=== PATIENT | male | born 1960 ===

== ENCOUNTER 2024-09-14 10:38 | Inpatient (IN) ==
[2024-09-14] MEDS ORDERED: IOPAMIDOL 100 ML BOTTLE IV ONE (10:39)
[2024-09-14] MEDS: ONDANSETRON 4 MG/2 ML VIAL IV ONE (11:18)
[2024-09-14] MEDS: ASPIRIN 81 MG TAB.CHEW CHEWED ONE (11:18)
[2024-09-14] MEDS: morphine 4 MG/ML VIAL IV ONE (11:18)
[2024-09-14 11:33] LABS: Basophils # (Auto) 0.02 K/mcL (0.00-0.30); Basophils % (Auto) 0.1 % (0.0-2.0); Eosinophils # (Auto) 0.02 K/mcL (0.00-0.70); Eosinophils % (Auto) 0.1 % (0.0-7.0); Hematocrit 45.5 % (40.1-51.0); Hemoglobin 16.1 g/dL (13.7-17.5); Lymphocytes # (Auto) 2.07 K/mcL (1.50-4.80); Lymphocytes % (Auto) 15.2 % (15.5-49.0); Mean Cell Volume 85.4 fL (80.0-100.0); Mean Corpuscular HGB Conc 35.4 g/dL (31.0-36.0); Mean Platelet Volume 9.1 fL (8.8-12.5); Monocytes # (Auto) 0.91 K/mcL (0.10-0.90); Monocytes % (Auto) 6.7 % (1.0-12.0); Neutrophils % (Auto) 77.8 % (38.0-78.0); Platelet Count 188 K/mcL (140-440); RBC 5.33 M/mcL (4.63-6.08); Red Cell Distribution Width 12.4 % (11.5-14.5); WBC 13.6 K/mcL (4.5-11.0)
[2024-09-14 11:53] LABS: INR 1.1 (0.9-1.1); Prothrombin Time 14.3 sec (11.9-14.5)
[2024-09-14 11:58] LABS: ALT/SGPT 26 U/L (<40); AST/SGOT 25 U/L (<40); Albumin 4.6 gm/dL (3.2-5.2); Albumin/Globulin Ratio 1.8 (1.0-2.3); Alkaline Phosphatase 72 U/L (39-117); Bilirubin,Total 1.5 mg/dL (0.1-1.0); Blood Urea Nitrogen 15 mg/dL (8-23); Calcium 9.2 mg/dL (8.6-10.4); Carbon Dioxide 24 mmol/L (22-30); Chloride 100 mmol/L (96-108); Globulin 2.5 gm/dL (2.2-3.7); Glomerular Filtration Rate 78; Glucose 143 mg/dL (70-105); Potassium 3.9 mmol/L (3.3-5.1); Sodium 138 mmol/L (133-145)
[2024-09-14] MEDS: PIPERACILLIN SODIUM/TAZOBACTAM 3.375 GM in DEXTROSE 5% IN WATER 50 ML IV ONE (13:35)
[2024-09-14] MEDS: DEXTROSE 5%-NS 1,000 ML IV SCH (17:37)
[2024-09-14] MEDS: PIPERACILLIN SODIUM/TAZOBACTAM 4.5 GM in DEXTROSE 5% IN WATER 100 ML IV SCH (17:56)
[2024-09-14] MEDS: HYDROmorphone 1 MG/ML SYRINGE IV PRN (21:31)
[2024-09-15 06:40] LABS: Hematocrit 43.1 % (40.1-51.0); Hemoglobin 15.1 g/dL (13.7-17.5); Mean Cell Volume 87.1 fL (80.0-100.0); Mean Platelet Volume 9.1 fL (8.8-12.5); Platelet Count 150 K/mcL (140-440); RBC 4.95 M/mcL (4.63-6.08); Red Cell Distribution Width 12.6 % (11.5-14.5); WBC 12.1 K/mcL (4.5-11.0)
[2024-09-15 06:45] LABS: ALT/SGPT 19 U/L (<40); AST/SGOT 23 U/L (<40); Albumin 4.1 gm/dL (3.2-5.2); Albumin/Globulin Ratio 1.6 (1.0-2.3); Alkaline Phosphatase 65 U/L (39-117); Bilirubin,Total 1.6 mg/dL (0.1-1.0); Blood Urea Nitrogen 13 mg/dL (8-23); Calcium 8.7 mg/dL (8.6-10.4); Carbon Dioxide 24 mmol/L (22-30); Chloride 100 mmol/L (96-108); Globulin 2.5 gm/dL (2.2-3.7); Glomerular Filtration Rate 78; Glucose 175 mg/dL (70-105); Potassium 3.9 mmol/L (3.3-5.1); Sodium 136 mmol/L (133-145)
[2024-09-15] MEDS: LOSARTAN 50 MG TABLET PO SCH (08:23)
[2024-09-15] MEDS: ACETAMINOPHEN 1,000 MG/100 ML BAG IV PRN (09:13)
[2024-09-15 16:09] LABS: Basophils # (Auto) 0.02 K/mcL (0.00-0.30); Basophils % (Auto) 0.2 % (0.0-2.0); Eosinophils # (Auto) 0.17 K/mcL (0.00-0.70); Eosinophils % (Auto) 1.5 % (0.0-7.0); Hematocrit 44.7 % (40.1-51.0); Hemoglobin 15.7 g/dL (13.7-17.5); Lymphocytes # (Auto) 2.09 K/mcL (1.50-4.80); Lymphocytes % (Auto) 18.1 % (15.5-49.0); Mean Cell Volume 86.1 fL (80.0-100.0); Mean Corpuscular HGB Conc 35.1 g/dL (31.0-36.0); Mean Platelet Volume 8.7 fL (8.8-12.5); Monocytes # (Auto) 0.89 K/mcL (0.10-0.90); Monocytes % (Auto) 7.7 % (1.0-12.0); Neutrophils % (Auto) 72.4 % (38.0-78.0); Platelet Count 158 K/mcL (140-440); RBC 5.19 M/mcL (4.63-6.08); Red Cell Distribution Width 12.5 % (11.5-14.5); WBC 11.5 K/mcL (4.5-11.0)
[2024-09-15 16:29] LABS: Blood Urea Nitrogen 11 mg/dL (8-23); Calcium 9.1 mg/dL (8.6-10.4); Carbon Dioxide 28 mmol/L (22-30); Chloride 102 mmol/L (96-108); Glomerular Filtration Rate 69; Glucose 143 mg/dL (70-105); Potassium 4.3 mmol/L (3.3-5.1); Sodium 139 mmol/L (133-145)
[2024-09-16 06:07] LABS: Hematocrit 42.3 % (40.1-51.0); Hemoglobin 14.9 g/dL (13.7-17.5); Mean Cell Volume 86.5 fL (80.0-100.0); Mean Corpuscular HGB Conc 35.2 g/dL (31.0-36.0); Mean Platelet Volume 9.1 fL (8.8-12.5); Platelet Count 144 K/mcL (140-440); RBC 4.89 M/mcL (4.63-6.08); Red Cell Distribution Width 12.5 % (11.5-14.5); WBC 9.7 K/mcL (4.5-11.0)
[2024-09-16 06:26] LABS: ALT/SGPT 78 U/L (<40); AST/SGOT 63 U/L (<40); Albumin 3.9 gm/dL (3.2-5.2); Albumin/Globulin Ratio 1.6 (1.0-2.3); Alkaline Phosphatase 101 U/L (39-117); Bilirubin,Total 1.3 mg/dL (0.1-1.0); Blood Urea Nitrogen 10 mg/dL (8-23); Calcium 8.8 mg/dL (8.6-10.4); Carbon Dioxide 26 mmol/L (22-30); Chloride 103 mmol/L (96-108); Globulin 2.5 gm/dL (2.2-3.7); Glomerular Filtration Rate 69; Glucose 146 mg/dL (70-105); Potassium 3.7 mmol/L (3.3-5.1); Sodium 138 mmol/L (133-145)
[2024-09-16] MEDS ORDERED: MIDAZOLAM 2 MG/2 ML VIAL ONE (07:47)
[2024-09-16] MEDS ORDERED: PROPOFOL 200 MG/20 ML VIAL IV ONE (07:47)
[2024-09-16] MEDS ORDERED: KETAMINE 50 MG/ML ML ONE (07:48)
[2024-09-16] MEDS ORDERED: METOCLOPRAMIDE 10 MG/2 ML VIAL ONE (07:54)
[2024-09-16] MEDS ORDERED: PHENYLEPHRINE 10 MG/ML VIAL ONE (07:54)
[2024-09-16] MEDS ORDERED: ePHEDrine 50 MG/5 ML SYRINGE (ANEST) IV ONE (07:54)
[2024-09-16] MEDS ORDERED: 0.9 % SODIUM CHLORIDE 100 ML IV ONE (07:58)
[2024-09-16] MEDS ORDERED: SUGAMMADEX SODIUM 200 MG/2 ML VIAL IV ONE (08:09)
[2024-09-16] MEDS ORDERED: KETOROLAC 30 MG/ML VIAL ONE (08:13)
[2024-09-16] MEDS ORDERED: FAMOTIDINE/PF 20 MG/2 ML VIAL IV ONE (08:13)
[2024-09-16] MEDS ORDERED: TRANEXAMIC ACID 1,000 MG/10 ML VIAL ONE (08:13)
[2024-09-16] MEDS ORDERED: ONDANSETRON 4 MG/2 ML VIAL ONE (08:13)
[2024-09-16] MEDS ORDERED: GLYCOPYRROLATE 0.2 MG/ML VIAL IV ONE (08:13)
[2024-09-16] MEDS ORDERED: DEXAMETHASONE 10 MG/ML VIAL ONE (08:13)
[2024-09-16] MEDS ORDERED: ROCURONIUM 10 MG/ML ML IV ONE (08:13)
[2024-09-16] MEDS: BUPIVACAINE W/EPI 0.25% 50 ML VIAL IJ ONE (10:08)
[2024-09-16] MEDS ORDERED: HYDROmorphone 0.5 MG/0.5 ML SYRINGE ONE ×2 (10:35→12:06)
[2024-09-16] MEDS ORDERED: LABETALOL HCL 20 MG/4 ML VIAL IV ONE (10:37)
[2024-09-16] MEDS ORDERED: fentaNYL 100 MCG/2 ML VIAL IV PRN (12:49)
[2024-09-16] MEDS ORDERED: NALOXONE HCL 0.4 MG/ML VIAL IV PRN (12:49)
[2024-09-16] MEDS ORDERED: HYDROmorphone 0.5 MG/0.5 ML SYRINGE IV PRN (12:49)
[2024-09-16] MEDS ORDERED: ONDANSETRON 4 MG/2 ML VIAL IV PRN (12:49)
[2024-09-16] MEDS ORDERED: IPRATROPIUM/ALBUTEROL 3 ML AMPUL.NEB NEB PRN (12:49)
[2024-09-16] MEDS: ACETAMINOPHEN 650 MG/65 ML BAG IV SCH (16:04)
[2024-09-16] MEDS: LACTATED RINGERS 1,000 ML IV SCH (20:54)
[2024-09-17 06:48] LABS: Hemoglobin 14.5 g/dL (13.7-17.5); Mean Cell Volume 86.3 fL (80.0-100.0); Mean Corpuscular HGB Conc 35.4 g/dL (31.0-36.0); Mean Platelet Volume 9.8 fL (8.8-12.5); Platelet Count 152 K/mcL (140-440); RBC 4.75 M/mcL (4.63-6.08); Red Cell Distribution Width 12.5 % (11.5-14.5); WBC 13.4 K/mcL (4.5-11.0)
[2024-09-17 06:49] LABS: ALT/SGPT 84 U/L (<40); AST/SGOT 57 U/L (<40); Albumin 4.1 gm/dL (3.2-5.2); Albumin/Globulin Ratio 1.7 (1.0-2.3); Alkaline Phosphatase 81 U/L (39-117); Bilirubin,Total 0.6 mg/dL (0.1-1.0); Blood Urea Nitrogen 12 mg/dL (8-23); Calcium 8.8 mg/dL (8.6-10.4); Carbon Dioxide 25 mmol/L (22-30); Chloride 102 mmol/L (96-108); Globulin 2.4 gm/dL (2.2-3.7); Glomerular Filtration Rate 69; Glucose 173 mg/dL (70-105); Potassium 3.9 mmol/L (3.3-5.1); Sodium 140 mmol/L (133-145)
[2024-09-17] MEDS ORDERED: ZOLPIDEM 5 MG TABLET PO PRN (09:30)
[2024-09-17] MEDS: DEXTROSE 5%-NS 1,000 ML IV SCH ×2 (17:01→18:02)
[2024-09-17] MEDS: ONDANSETRON 4 MG/2 ML VIAL IV PRN (21:16)
[2024-09-18] MEDS: DEXTROSE 5%-LR 1,000 ML IV SCH (02:08)
[2024-09-18 06:12] LABS: Hematocrit 41.8 % (40.1-51.0); Hemoglobin 14.5 g/dL (13.7-17.5); Mean Cell Volume 87.6 fL (80.0-100.0); Mean Corpuscular HGB Conc 34.7 g/dL (31.0-36.0); Platelet Count 171 K/mcL (140-440); RBC 4.77 M/mcL (4.63-6.08); Red Cell Distribution Width 12.8 % (11.5-14.5); WBC 11.3 K/mcL (4.5-11.0)
[2024-09-18 06:36] LABS: ALT/SGPT 59 U/L (<40); AST/SGOT 31 U/L (<40); Albumin/Globulin Ratio 1.7 (1.0-2.3); Alkaline Phosphatase 69 U/L (39-117); Bilirubin,Total 0.8 mg/dL (0.1-1.0); Blood Urea Nitrogen 12 mg/dL (8-23); Calcium 8.7 mg/dL (8.6-10.4); Carbon Dioxide 26 mmol/L (22-30); Chloride 104 mmol/L (96-108); Globulin 2.3 gm/dL (2.2-3.7); Glomerular Filtration Rate 69; Glucose 128 mg/dL (70-105); Potassium 3.6 mmol/L (3.3-5.1); Sodium 140 mmol/L (133-145)
[2024-09-18] MEDS: HEPARIN 5,000 UNIT/ML VIAL SQ SCH (08:35)
[2024-09-18] MEDS: LOSARTAN 50 MG TABLET PO ONE (17:35)
[2024-09-18] MEDS: TAMSULOSIN 0.4 MG CAPSULE PO SCH (20:53)
[2024-09-19] MEDS: ENALAPRILAT 1.25 MG/ML VIAL IV ONE (00:44)
[2024-09-19] MEDS: LOSARTAN 50 MG TABLET PO SCH (08:18)
[2024-09-19] MEDS: amLODIPine 10 MG TABLET PO SCH (17:42)
[2024-09-20 05:59] LABS: Basophils # (Auto) 0.02 K/mcL (0.00-0.30); Basophils % (Auto) 0.3 % (0.0-2.0); Eosinophils # (Auto) 0.25 K/mcL (0.00-0.70); Eosinophils % (Auto) 3.2 % (0.0-7.0); Hematocrit 41.7 % (40.1-51.0); Hemoglobin 14.6 g/dL (13.7-17.5); Lymphocytes # (Auto) 1.43 K/mcL (1.50-4.80); Lymphocytes % (Auto) 18.5 % (15.5-49.0); Mean Cell Volume 85.5 fL (80.0-100.0); Mean Platelet Volume 8.7 fL (8.8-12.5); Monocytes # (Auto) 0.48 K/mcL (0.10-0.90); Monocytes % (Auto) 6.2 % (1.0-12.0); Neutrophils % (Auto) 71.7 % (38.0-78.0); Platelet Count 176 K/mcL (140-440); RBC 4.88 M/mcL (4.63-6.08); Red Cell Distribution Width 12.4 % (11.5-14.5); WBC 7.7 K/mcL (4.5-11.0)
[2024-09-20 06:28] LABS: ALT/SGPT 37 U/L (<40); AST/SGOT 20 U/L (<40); Albumin 3.7 gm/dL (3.2-5.2); Albumin/Globulin Ratio 1.4 (1.0-2.3); Alkaline Phosphatase 61 U/L (39-117); Bilirubin,Direct 0.3 mg/dL (<0.3); Bilirubin,Total 0.6 mg/dL (0.1-1.0); Blood Urea Nitrogen 12 mg/dL (8-23); Calcium 9.1 mg/dL (8.6-10.4); Carbon Dioxide 25 mmol/L (22-30); Chloride 104 mmol/L (96-108); Globulin 2.6 gm/dL (2.2-3.7); Glomerular Filtration Rate 88; Glucose 125 mg/dL (70-105); Lactate Dehydrogenase 176 U/L (135-225); Phosphorous 3.9 mg/dL (2.5-4.5); Potassium 3.5 mmol/L (3.3-5.1); Sodium 142 mmol/L (133-145); Triglycerides 108 mg/dL (<150); Uric Acid 3.2 mg/dL (2.5-8.0)
[2024-09-20] MEDS: LACTATED RINGERS 1,000 ML IV SCH (13:11)
[2024-09-20] MEDS: PROPOFOL 200 MG/20 ML VIAL IV SCH (13:11)
[2024-09-20] MEDS: ACETAMINOPHEN 325 MG TABLET PO PRN (21:14)
[2024-09-21] MEDS: LACTATED RINGERS 1,000 ML IV SCH ×2 (14:15→14:28)
[2024-09-21] MEDS: NITROGLYCERIN 0.6 MG/HR PATCH TD ONE ×2 (14:21→14:22)
[2024-09-21] MEDS: INDOMETHACIN 25 MG CAPSULE PO ONE (14:22)
[2024-09-21] MEDS: MIDAZOLAM 2 MG/2 ML VIAL IV SCH (14:28)
[2024-09-21] MEDS: PROPOFOL 200 MG/20 ML VIAL IV SCH (14:29)
[2024-09-21] MEDS: PROPOFOL 200 MG/20 ML VIAL IV ONE (15:57)
[2024-09-21] MEDS: GENTAMICIN SULFATE 80 MG/2 ML VIAL IJ ONE (15:57)
[2024-09-21] MEDS: MIDAZOLAM 2 MG/2 ML VIAL IV ONE (15:57)
[2024-09-21] MEDS: oxyCODONE IR 5 MG TABLET PO PRN (21:03)
[2024-09-22 05:57] LABS: Basophils # (Auto) 0.02 K/mcL (0.00-0.30); Basophils % (Auto) 0.1 % (0.0-2.0); Eosinophils # (Auto) 0.01 K/mcL (0.00-0.70); Eosinophils % (Auto) 0.1 % (0.0-7.0); Hematocrit 42.3 % (40.1-51.0); Hemoglobin 14.8 g/dL (13.7-17.5); Lymphocytes % (Auto) 6.5 % (15.5-49.0); Mean Cell Volume 86.3 fL (80.0-100.0); Mean Platelet Volume 8.7 fL (8.8-12.5); Monocytes # (Auto) 0.86 K/mcL (0.10-0.90); Monocytes % (Auto) 6.2 % (1.0-12.0); Neutrophils % (Auto) 86.8 % (38.0-78.0); Platelet Count 210 K/mcL (140-440); Red Cell Distribution Width 12.5 % (11.5-14.5); WBC 13.8 K/mcL (4.5-11.0)
[2024-09-22 06:25] LABS: ALT/SGPT 48 U/L (<40); AST/SGOT 28 U/L (<40); Albumin/Globulin Ratio 1.4 (1.0-2.3); Alkaline Phosphatase 61 U/L (39-117); Bilirubin,Direct 0.4 mg/dL (<0.3); Bilirubin,Total 0.8 mg/dL (0.1-1.0); Blood Urea Nitrogen 19 mg/dL (8-23); Calcium 9.4 mg/dL (8.6-10.4); Carbon Dioxide 27 mmol/L (22-30); Chloride 97 mmol/L (96-108); Globulin 2.8 gm/dL (2.2-3.7); Glomerular Filtration Rate 78; Glucose 140 mg/dL (70-105); Lactate Dehydrogenase 156 U/L (135-225); Phosphorous 3.7 mg/dL (2.5-4.5); Potassium 3.9 mmol/L (3.3-5.1); Sodium 136 mmol/L (133-145); Triglycerides 93 mg/dL (<150); Uric Acid 3.9 mg/dL (2.5-8.0)
[2024-09-22] MEDS ORDERED: IOPAMIDOL 100 ML BOTTLE IV ONE (12:16)
[2024-09-22] MEDS ORDERED: DIATRIZOATE MEGLU/DIATRIZO SOD 30 ML BOTTLE PO ONE (12:16)
== END 2024-09-22 14:50 | disposition home or self-care (01) | DRG 418 ==
LOC: MEDSUR 10:38 → ED 10:38 → OBSVTOIN 17:08 → INTOOBSV 17:08 → MEDSUR 17:30
PROVIDERS: ADMIT Surgery Surgical Critical Care; ATTEND Surgery Surgical Critical Care
PROC: ERCPPAP (ICD-10-PCS; 2024-09-21 15:45)